=== PATIENT | female | born 1935 | race Caucasian/White ===

== ENCOUNTER 2020-05-25 22:40 | Inpatient (IN) | payer MEDICARE ==
[~2020-05-25] VITALS: Ht 157.5 cm; Wt 47.6 kg
[~2020-05-25 22:40] MED LIST: ACIDOPHILUS LAC1 CAP PO; ALEVE220 MG PO; ANTIVERT12.5 MG PO; BENICAR20 MG PO; CYCLOBENZAPRINE10 MG PO; HYDROCHLOROTH12.5 M1 PO; HYDROCODON-ACE1 EAC7 PO; MIRALAX17 GM PO; OMEPRAZOLE40 MG PO; SYNTHROID100 MCG PO; VALIUM5 MG PO
[2020-05-26] MEDS ORDERED: NORVASC5 MG PO (01:17)
[2020-05-26] MEDS ORDERED: K-TAB10 MEQ PO (01:18)
[2020-05-26] MEDS ORDERED: FERROUS SULFAT325 MG PO (01:19)
[2020-05-26] MEDS ORDERED: COREG6.25 MG PO (01:19)
[2020-05-26] MEDS ORDERED: PROBIOTIC BLEN1 EACH PO (01:20)
[2020-05-26] MEDS ORDERED: LASIX40 MG PO (01:21)
[2020-05-26] MEDS ORDERED: SYNTHROID75 MCG PO (01:22)
[2020-05-26] MEDS ORDERED: NAMENDA10 MG PO (01:23)
[2020-05-26] MEDS ORDERED: DONEPEZIL HCL10 MG PO (01:24)
[2020-05-26] MEDS ORDERED: PAROXETINE HCL10 MG PO (01:25)
[2020-05-26] MEDS ORDERED: OMEPRAZOLE40 MG PO (01:26)
--- NOTE | 2020-05-26 01:30 | NUR ---
DR HARTMAN NOTIFIED OF ARRIVAL ORDERS RECIEVED, IV FLUIDS STARTED ORDERED
[2020-05-26 02:43] VITALS: BP 161/66; BMI 19.2
--- NOTE | 2020-05-26 03:10 | NUR ---
ADMITTED TO ROOM DIRECT ADMIT FROM [facility] VIA AMBULANCE, ALERT WITH PEROIDS OF CONFUSION, HAS NG TIBE TO RIGHT NARE CONECTED TO LOW INTERMITENT WALL SUCTION RETURN OF DARK GREEN FLUID, REQUESTING ICE CHIPS GIVEN 1 AT A TIME, SEE ASSESSMENT, INSTRUCTED ON USE OF CALL LIGHT, HAS SL TO RIGHT AC, ABD SOFT DENIES PAIN AT THIS TIME
[2020-05-26 04:00] VITALS: BP 145/76
[2020-05-26 05:38] LABS: BASOPHILS 0.1 % (0-2); EOSINOPHILS 8.3 % (0-7); HEMATOCRIT 34.2 % (36.0-48.0); HEMOGLOBIN 10.7 g/dL (12-16); IMMATURE GRANULOCYTES 1.9 % (0-5); LYMPHOCYTES 6.7 % (15-50); MCH 28.6 pg (26.0-34.0); MCHC 31.3 g/dL (31.0-37.0); MCV 91.4 fL (80.0-100.0); MEAN PLATELET VOLUME 10.4 fL (7.4-10.4); MONOCYTES 9.5 % (2-11); NEUTROPHILS 73.5 % (40-80); PLATELET COUNT 216 10x3/uL (130-400); RBC 3.74 10x6/uL (4.00-5.40); RDW 14.1 % (11.5-14.5); WBC 8.8 10x3/uL (4.8-10.8)
[2020-05-26 06:08] LABS: ALBUMIN 2.7 g/dL (3.4-5.0); ANION GAP 16.3 mmol/L (8-16); BILIRUBIN - TOTAL 0.44 mg/dL (0.2-1.3); CALCIUM 9.1 mg/dL (8.5-10.1); CARBON DIOXIDE 21.8 mmol/L (21.0-32.0); CREATININE - SERUM 0.8 mg/dL (0.6-1.3); POTASSIUM - SERUM 3.1 mmol/L (3.5-5.1); PROTEIN - SERUM 5.9 g/dL (6.4-8.2)
--- NOTE | 2020-05-26 08:00 | NUR ---
SPOKE WITH DR HARTMAN ABOUT REPLACING POTASSIUM. 40 MEQ IV IS THE ORDER I RECEIVED.
[2020-05-26 08:49] VITALS: BP 163/69
--- NOTE | 2020-05-26 12:01 | NUR ---
NG TUBE TO THE RIGHT NARE. CUSHION GIVEN TO DAUGHTER DAYNE TO EASE DISCOMFORT. PT ASSISTED ON AND OFF BEDPAN. CL IN REACH. NO FURTHER NEEDS AT THIS TIME. WCTM
[2020-05-26 12:47] VITALS: BP 161/73
[2020-05-26 14:12] VITALS: Ht 157.5 cm; Wt 47.6 kg
[2020-05-26 16:00] VITALS: BP 180/80
--- NOTE | 2020-05-26 16:35 | NUR ---
PATIENT POSITIONED TO RIGHT SIDE. DAUGHTER DAYNE IN ROOM. CL IN REACH. NO FURTHER NEEDS AT THIS TIME. WCTM
[2020-05-26 20:00] VITALS: BP 181/81
--- NOTE | 2020-05-26 21:00 | NUR ---
PATIENT RESTING IN BED WITH FAMILY AT BEDSIDE. NO S/S OF ACUTE DISTRESS. NO C/O AT THIS TIME. PATIENT IS CONFUSED TO SITUATION. PATIENT HAS RIGHT AC IV, NORMAL SALINE @ 100 ML/HR. IV IS PATENT WITHOUT REDNESS, SWELLING, OR TENDERNESS. PATIENT HAS NG-TUBE TO RIGHT NARE ON LOW-INTERMITTENT SUCTION. PATIENT HAS REDNESS ON COCCYX. CALL LIGHT WITHIN REACH. BED ALARM ON. WILL CONTINUE TO MONITOR.
[2020-05-27] VITALS: BP 167/77
--- NOTE | 2020-05-27 03:43 | NUR ---
I have reviewed this patient and I concur with the Shift Assessment completed by the Licensed Practical Nurse today this shift.
[2020-05-27 04:00] VITALS: BP 152/74
[2020-05-27 09:18] VITALS: BP 134/75
[2020-05-27 09:49] LABS: BASOPHILS 0.2 % (0-2); EOSINOPHILS 1.4 % (0-7); HEMATOCRIT 32.4 % (36.0-48.0); HEMOGLOBIN 10.2 g/dL (12-16); IMMATURE GRANULOCYTES 1.1 % (0-5); LYMPHOCYTES 7.9 % (15-50); MCH 29.1 pg (26.0-34.0); MCHC 31.5 g/dL (31.0-37.0); MCV 92.6 fL (80.0-100.0); MEAN PLATELET VOLUME 9.8 fL (7.4-10.4); MONOCYTES 10.2 % (2-11); NEUTROPHILS 79.2 % (40-80); PLATELET COUNT 201 10x3/uL (130-400); RDW 14.6 % (11.5-14.5); WBC 9.6 10x3/uL (4.8-10.8)
[2020-05-27 09:51] LABS: CALC OSMOLALITY 295 mosm/kg (275-300); CALCIUM 8.7 mg/dL (8.5-10.1); CARBON DIOXIDE 20.4 mmol/L (21.0-32.0); CHLORIDE - SERUM 115 mmol/L (98-107); CREATININE - SERUM 0.7 mg/dL (0.6-1.3); GLUCOSE 74 mg/dL (74-106); POTASSIUM - SERUM 3.2 mmol/L (3.5-5.1); SODIUM 150 mmol/L (136-145); eGFR NON AFRICAN AMERICAN 84 mL/min (90-120)
[2020-05-27 09:54] LABS: UREA NITROGEN 9 mg/dL (7-18)
[2020-05-27 13:21] VITALS: BP 168/81
--- NOTE | 2020-05-27 17:21 | NUR ---
PATIENT SR ACCOUNT EXECUTIVE LIGHT. USED BED PARK PER REQUEST. DENIES NEEDS AFTER FINISHED. PATIENT WITHOUT DISTRESS. FAMILY IN ROOM. BED LOW POSITION, CALL LIGHT IN REACH. WILL CONTINUE TO MONITOR.
[2020-05-27 20:00] VITALS: BP 163/90
--- NOTE | 2020-05-27 21:00 | NUR ---
LYING IN BED. HOB ELEVATED. GRANDDAUGHTER AT BEDSIDE. ALERT AND ORIENTED TO SELF AND PLACE. CONFUSED AT TIMES. NGT NOTED TO RT NARE WITH DARK GREEN DRAINAGE IN CANISTER. EATING ICE CHIPS. RESP EVEN AND NONLABORED. BBS EXP WHEEZES. ABD IS DISTENDED AND FIRM BUT PT IS PASSING GAS. COCCYX IS RED AND BUTT PASTE APPLIED. BRUISES NOTED TO BUE. D5 1/2 NS WITH 20 MEQ KCL INFUSING @ 100 MLHR IN RT AC. DENIES PAIN. SR ELEVATED X2. CL IN REACH. BED ALARM ON FOR PT SAFETY
[2020-05-28] VITALS (7 sets, daily range): BP systolic 140–180; BP diastolic 77–86
--- NOTE | 2020-05-28 00:30 | NUR ---
C/O NAUSEA. MEDICATED WITH ZOFRAN. CL IN REACH.
--- NOTE | 2020-05-28 04:49 | NUR ---
STILL C/O NAUSEA. NGT HAS PUT OUT 150 ML OF DARK GREEN FLUID. ATTEMPTED TO CHECK PLACEMENT PER AIR BOLUS BUT BOWEL SOUNDS WERE SO LOUD THAT AIR BOLUS COULDNT BE AUSCULTATED. ORDERED STAT CXR TO CHECK PLACEMENT. MAT PACKER AT NURSES STATION AND SAID THAT THE KUB THAT WAS JUST PERFORMED COULD CHECK FOR PLACEMENT. WILL CANCEL STAT CXR.
--- NOTE | 2020-05-28 05:49 | NUR ---
RECEIVED PRELIM KUB WHICH SHOWS NGT WITHIN HIATAL HERNIA. NGT ADVANCED WITH DARK GREEN FLUID NOTED. PLACEMENT CHECKED VIA AIR BOLUS AND AUSCULTATION PER STAFF.
[2020-05-28 06:28] LABS: BASOPHILS 0.1 % (0-2); EOSINOPHILS 1.7 % (0-7); HEMATOCRIT 32.7 % (36.0-48.0); HEMOGLOBIN 10.4 g/dL (12-16); IMMATURE GRANULOCYTES 0.9 % (0-5); LYMPHOCYTES 8.7 % (15-50); MCH 28.7 pg (26.0-34.0); MCHC 31.8 g/dL (31.0-37.0); MEAN PLATELET VOLUME 10.1 fL (7.4-10.4); MONOCYTES 11.7 % (2-11); NEUTROPHILS 76.9 % (40-80); PLATELET COUNT 198 10x3/uL (130-400); RBC 3.63 10x6/uL (4.00-5.40); RDW 14.2 % (11.5-14.5); WBC 9.3 10x3/uL (4.8-10.8)
[2020-05-28 06:29] LABS: MCV 90.1 fL (80.0-100.0)
[2020-05-28 06:37] LABS: CALCIUM 8.1 mg/dL (8.5-10.1); CARBON DIOXIDE 25.5 mmol/L (21.0-32.0); CHLORIDE - SERUM 110 mmol/L (98-107); SODIUM 143 mmol/L (136-145)
[2020-05-28 06:38] LABS: CALC OSMOLALITY 285 mosm/kg (275-300); CREATININE - SERUM 0.5 mg/dL (0.6-1.3); GLUCOSE 163 mg/dL (74-106); UREA NITROGEN 5 mg/dL (7-18); eGFR NON AFRICAN AMERICAN > 90 mL/min (90-120)
[2020-05-28 06:39] LABS: POTASSIUM - SERUM 2.8 mmol/L (3.5-5.1)
--- NOTE | 2020-05-28 06:45 | NUR ---
CRITICAL POTASSIUM OF 2.8. ORDERED ELECTROLYTE PROTOCOL AND STARTED KCL RIDERS
--- NOTE | 2020-05-28 08:48 | NUR ---
SHE IS CONFUSED, HER NORMAL WITH DEMENTIA. THE DAUGHTER IS AT THE BEDSIDE. SHE IS TELLING ME WHEN SHE NEEDS TO VOID, USING THE BEDPAN. 100 CC OF GREEN THIN LIQUID OUT OF THE NG TUBE. THE CALL LIGHT IS WITHIN REACH, THE BED ALARM IS ON.
--- NOTE | 2020-05-28 17:39 | NUR ---
20 G IV STARTED TO THE RFA, REMOVED IV FROM THE RAC. SHE HAS HAD A SMALL BM FROM THE CONTRAST, SHE IS VOMITING.
--- NOTE | 2020-05-28 19:00 | NUR ---
BEDSIDE REPORT RECEIVED AND CARE OF PT ASSUMED. PT LYING IN HIGH ASTUDILLO'S POSITION...VOMITING WITH DAUGHTER AT BEDSIDE. NG TUBE TO RIGHT NARE CLAMPED AT THIS TIME DUE TO BOWEL SERIES BEING PERFORMED. IV TO RIGHT FA PATENT WITH D51/2 NS W/ 20 KCL INFUSING AT 100 ML/HR. WILL MONITOR FOR NEEDS.
--- NOTE | 2020-05-28 20:02 | NUR ---
HS MEDICATIONS GIVEN..PT STILL WITH N/V. RADIOLOGY JUST TOOK XRAY.
--- NOTE | 2020-05-28 20:05 | NUR ---
CALLED DR HARTMAN PER RADOLOGY TO GIVE UPDATE ON BOWEL SERIES...AFTER 3 HRS AND 20 MINS STILL NOTHING IN COLON. ORDER RECEIVED TO RE-START SUCTION TO NG TUBE AND PERFORM KUB IN AM.
--- NOTE | 2020-05-28 20:10 | NUR ---
RE-CONNECTED SUCTION TO NG TUBE IN RIGHT NARE WITH IMMEDIATE RETURN OF 900 ML DARK GREEN, THICK LIQUID. PT FEELING BETTER AND ABDOMEN LESS DISTENDED.
--- NOTE | 2020-05-28 20:20 | NUR ---
CHANGED ALL BEDDING AND GOWN DUE TO INCONTINENCE. POSITIONED IN BED FOR COMFORT. DAUGHTER IS AT BEDSIDE.
--- NOTE | 2020-05-28 21:55 | NUR ---
PT RESTING IN HIGH ASTUDILLO'S POSITION WITH EYES CLOSED AND EASY RESPIRATIONS.
--- NOTE | 2020-05-28 22:29 | NUR ---
FLUSHED NG TUBE TO THIN DRAINAGE.
--- NOTE | 2020-05-28 23:57 | NUR ---
PT C/O SOB...SPO2 95% / PULSE 116. TEMP ELEVATED AT 100.2 DEGREES...BP 177/98. ENCOURAGED COUGHING AND DEEP BREATHING.
[2020-05-29] VITALS: BP 177/98
--- NOTE | 2020-05-29 00:25 | NUR ---
CALLED DR HARTMAN AND RECEIVED ORDER FOR LASIX 20 MG IVP FOR WETNESS IN LUNGS AND SOB. NO NEW ORDER FOR TYLENOL FOR TEMP OF 100.2 DEGREES. WILL CONTINUE TO MONITOR CLOSELY.
--- NOTE | 2020-05-29 02:01 | NUR ---
ALL LINEN AND BEDDING CHANGED DUE TO LARGE INCONTINENCE OF URINE. POSITIONED FOR COMFORT.
--- NOTE | 2020-05-29 02:58 | NUR ---
PT HAD X1 SMALL INCONTINENT STOOL.
[2020-05-29 04:00] VITALS: BP 138/84
--- NOTE | 2020-05-29 04:41 | NUR ---
PT RESTING IN MID ASTUDILLO'S POSITION WITH UNLABORED BREATHING. URINE OUTPUT 1250ML SINCE GIVING LASIX IV.
[2020-05-29 05:22] LABS: BASOPHILS 0.1 % (0-2); EOSINOPHILS 0 % (0-7); HEMATOCRIT 35.9 % (36.0-48.0); HEMOGLOBIN 11.4 g/dL (12-16); IMMATURE GRANULOCYTES 0.3 % (0-5); LYMPHOCYTES 3.2 % (15-50); MCH 28.5 pg (26.0-34.0); MCHC 31.8 g/dL (31.0-37.0); MCV 89.8 fL (80.0-100.0); MEAN PLATELET VOLUME 10.3 fL (7.4-10.4); MONOCYTES 5.1 % (2-11); NEUTROPHILS 91.3 % (40-80); PLATELET COUNT 217 10x3/uL (130-400); RDW 14.3 % (11.5-14.5)
[2020-05-29 05:31] LABS: WBC 15.4 10x3/uL (4.8-10.8)
[2020-05-29 05:33] LABS: CALC OSMOLALITY 288 mosm/kg (275-300); CALCIUM 8.1 mg/dL (8.5-10.1); CARBON DIOXIDE 26.4 mmol/L (21.0-32.0); CHLORIDE - SERUM 109 mmol/L (98-107); CREATININE - SERUM 0.7 mg/dL (0.6-1.3); GLUCOSE 204 mg/dL (74-106); POTASSIUM - SERUM 3.3 mmol/L (3.5-5.1); SODIUM 143 mmol/L (136-145); UREA NITROGEN 6 mg/dL (7-18); eGFR NON AFRICAN AMERICAN 84 mL/min (90-120)
[2020-05-29 08:00] VITALS: BP 105/61
--- NOTE | 2020-05-29 08:08 | NUR ---
SHE IS CONFUSED, USING THE BEDPAN ALOT. THE DAUGHTER IS AT THE BEDSIDE. THE NG TUBE IS PUTTING OUT GREEN THIN LIQUIDS. THE BED ALARM IS ON AND THE CALL LIGHT IS WITHIN REACH.
--- NOTE | 2020-05-29 09:53 | NUR ---
UP TO THE BEDSIDE COMMODE, HAD A BM, THE NG TUBE COME OUT. DR. HARTMAN NOTIFIED, CAN LEAVE THE NG TUBE OUT.
[2020-05-29 11:00] VITALS: BP 115/67
--- NOTE | 2020-05-29 13:36 | NUR ---
Nutrition follow-up: Pt remains NPO; NGT out and will not be replaced at this time Labs reviewed Pt with confusion; normal per daughter +BM, small Wt: 104# Will need nutrition support started within 24 hours if pt remains NPO RDN following.
[2020-05-29 16:40] VITALS: BP 101/58
[2020-05-29 20:00] VITALS: BP 108/60
--- NOTE | 2020-05-29 20:36 | NUR ---
ASSISTED PT TO BSC, NO S/SX OF DISTRESS, CL IN REACH, ADMINISTER PM MEDICATION. NO OTHER NEEDS AT THIS TIME, CONTINUE WITH PLAN OF CARE
[2020-05-30] VITALS: BP 121/86
--- NOTE | 2020-05-30 00:42 | NUR ---
I have reviewed this patient and I concur with the Shift Assessment completed by the Licensed Practical Nurse today this shift.
[2020-05-30 04:00] VITALS: BP 133/64
[2020-05-30 04:19] LABS: BASOPHILS 0.1 % (0-2); EOSINOPHILS 1.2 % (0-7); HEMATOCRIT 33.8 % (36.0-48.0); HEMOGLOBIN 10.5 g/dL (12-16); IMMATURE GRANULOCYTES 0.6 % (0-5); LYMPHOCYTES 5.2 % (15-50); MCH 28.5 pg (26.0-34.0); MCHC 31.1 g/dL (31.0-37.0); MEAN PLATELET VOLUME 10.4 fL (7.4-10.4); MONOCYTES 5.9 % (2-11); PLATELET COUNT 193 10x3/uL (130-400); RBC 3.68 10x6/uL (4.00-5.40); RDW 14.6 % (11.5-14.5); WBC 15.2 10x3/uL (4.8-10.8)
[2020-05-30 04:32] LABS: ANION GAP 7.8 mmol/L (8-16); CALCIUM 8.3 mg/dL (8.5-10.1); CARBON DIOXIDE 30.9 mmol/L (21.0-32.0); CREATININE - SERUM 0.8 mg/dL (0.6-1.3); MCV 91.8 fL (80.0-100.0); POTASSIUM - SERUM 3.7 mmol/L (3.5-5.1)
--- NOTE | 2020-05-30 07:30 | NUR ---
PT IS RESTING IN BED WITH EYES CLOSED. RESPIRATIONS ARE EVEN AND UNLABORED. PT IS EASILY AROUSED WITH VERBAL STIMULATION. PT IS AAOX 4 UPON AROUSAL. PT DENIES PRESENCE OF PAIN/N/V AT THIS TIME. FAMILY MEMBER AT BEDSIDE. PIV TO RIGHT FA INFUSING PER ORDER WITHOUT DIFFICULTY. FALL PRECAUTIONS IN PLACE. PT ENCOURAGED TO REPOSITION AND TCDB. PT AND PT FAMILY VERBALIZE UNDERSTANDING. BED IS IN THE LOWEST POSITION. CALL LIGHT AND BEDSIDE TABLE ARE WITHIN REACH. SIDE RAILS X 2. PT AND PT FAMILY DENY FURTHER NEEDS. WILL CONT TO MONITOR.
[2020-05-30 09:15] VITALS: BP 130/77
[2020-05-30 13:03] VITALS: BP 135/79
[2020-05-30 16:55] VITALS: BP 131/77
[2020-05-30 20:00] VITALS: BP 131/57
--- NOTE | 2020-05-30 23:38 | NUR ---
PT ON CL NEEDS ASSISTANCE TO BSC, ASSISTED PT ON BSCM CHANGED GOWN, SOCK AND SCDS WELL NEW PAD ON PT BED. NO OTHER NEEDS AT THIS TIME. CONTINUE WITH PLAN OF CARE
--- NOTE | 2020-05-30 23:55 | NUR ---
DAUGHTER CAME TO NURSES STATION STATING PT IS NOT FEELING WELL, PT IS HAVING HOT AND COLD EPISODES AND STATES SHE FEELS LIKE SHE IS "FLOATING" AND THAT EVERYTHING THAT TOUCHES HER IS MAKING HER HOT, PT VS READ T- 98.4 BP-127/81 P-95, RSP 20 O2 96. ADMINISTERED PRN NAUSEA MEDICATION, PT IS BELCHING A LOT, WILL CONTINUE WITH PLAN OF CARE AND MONITOR PT
[2020-05-31] VITALS (7 sets, daily range): BP systolic 126–140; BP diastolic 65–86
--- NOTE | 2020-05-31 04:00 | NUR ---
I have reviewed this patient and I concur with the Shift Assessment completed by the Licensed Practical Nurse today this shift.
--- NOTE | 2020-05-31 10:20 | MORECARE ---
CASE MANAGEMENT DISCHARGE SUMMARY PATIENT: LANA DELATORRE UNIT: [id number] ADM DATE: 05/26/20 AGE: 84 : 34 SEX: F ROOM/BED: D.2214 AUTHOR: TOYIN GARCES PHYSICIAN: REFERRING PHYSICIAN: SAW HARTMAN MD DATE OF SERVICE: 05/31/20 Discharge Plan Patient Name: LANA DELATORRE [facility] [facility] 1935 Planned Disposition: Swing Bed (Medicare Approved) Anticipated Discharge Date: Discharge Date: Expected LOS: Initial Reviewer: [email or web address] Initial Review Date: 05/26/2020 Generated: 05/31/20 11:19 am Comments DCP- Discharge Planning Updated by [email or web address]: Radha Tran on 05/31/20 9:[address] LATE ENTRY 05/30/20 PATIENT'S FAMILY CALLED ABOUT GETTING HER TO THE SWING BED AT [place] WHICH I CLOSER TO HOME. THE DAUGHTER SPOKE WITH ROXANNA WATKINS 05/31/20 REFERRAL SENT TO [facility] TO THEIR SWING BED UNIT I SPOKE WITH [facility] AND FAXED CLINICALS TO [phone] External Providers External Provider: OTHER-OTHER Next Contact Date: Service Request Date: Service Type: Resolution: Reviewer: Comments: Patient Name: LANA DELATORRE Page [phone] at 1020 All edits/amendments must be made on the electronic document DICTATION DATE: 05/31/20 1019 ART PROFESSOR: MONSERRAT 05/31/20 1019 RPT#: [id number] DC DATE: STATUS: ADM IN [facility] [address] [place] [address] END OF REPORT
--- NOTE | 2020-05-31 10:39 | NUR ---
RESTING IN BED, NO DISTRESS NOTED, CONFUSED, FAMILY IN ROOM, BLOWEL SOUNDS +, IV INFUSING, 2 ASSIST TO BSC, SCD IN PLACE
[2020-05-31 10:42] LABS: ALBUMIN 2.4 g/dL (3.4-5.0); ALKALINE PHOSPHATASE 85 U/L (30-120); ALT (SGPT) 13 U/L (10-68); BASOPHILS 0.2 % (0-2); BILIRUBIN - TOTAL 0.53 mg/dL (0.2-1.3); CALC OSMOLALITY 278 mosm/kg (275-300); CALCIUM 8.2 mg/dL (8.5-10.1); CHLORIDE - SERUM 104 mmol/L (98-107); CREATININE - SERUM 0.7 mg/dL (0.6-1.3); EOSINOPHILS 1.2 % (0-7); GLUCOSE 133 mg/dL (74-106); HEMATOCRIT 35.8 % (36.0-48.0); HEMOGLOBIN 11.5 g/dL (12-16); IMMATURE GRANULOCYTES 0.3 % (0-5); LYMPHOCYTES 6.5 % (15-50); MAGNESIUM - SERUM 1.4 mg/dL (1.8-2.4); MCH 29.2 pg (26.0-34.0); MCHC 32.1 g/dL (31.0-37.0); MCV 90.9 fL (80.0-100.0); MEAN PLATELET VOLUME 11.1 fL (7.4-10.4); MONOCYTES 7.4 % (2-11); NEUTROPHILS 84.4 % (40-80); PHOSPHOROUS 2.5 mg/dL (2.5-4.9); PLATELET COUNT 229 10x3/uL (130-400); PROTEIN - SERUM 5.6 g/dL (6.4-8.2); RBC 3.94 10x6/uL (4.00-5.40); RDW 14.4 % (11.5-14.5); SODIUM 140 mmol/L (136-145); UREA NITROGEN 7 mg/dL (7-18); WBC 12.9 10x3/uL (4.8-10.8); eGFR NON AFRICAN AMERICAN 84 mL/min (90-120)
[2020-05-31 10:44] LABS: POTASSIUM - SERUM 3.1 mmol/L (3.5-5.1)
--- NOTE | 2020-05-31 10:48 | MORECARE ---
CASE MANAGEMENT DISCHARGE SUMMARY PATIENT: LANA DELATORRE UNIT: [id number] ADM DATE: 05/26/20 AGE: 84 : 34 SEX: F ROOM/BED: D.2214 AUTHOR: TOYIN GARCES PHYSICIAN: REFERRING PHYSICIAN: SAW HARTMAN MD DATE OF SERVICE: 05/31/20 Discharge Plan Patient Name: LANA DELATORRE Facility[facility]:[place] : 1935 Planned Disposition: Swing Bed (Medicare Approved) Anticipated Discharge Date: Discharge Date: Expected LOS: Initial Reviewer: [email or web address] Initial Review Date: 05/26/2020 Generated: 05/31/20 11:48 am Comments DCP- Discharge Planning Updated by [email or web address]: Radha Tran on 05/31/20 9:[address] LATE ENTRY 05/30/20 PATIENT'S FAMILY CALLED ABOUT GETTING HER TO THE SWING BED AT [place] WHICH I CLOSER TO HOME. THE DAUGHTER SPOKE WITH ROXANNA WATKINS 05/31/20 REFERRAL SENT TO [facility] TO THEIR SWING BED UNIT I SPOKE WITH [facility] AND FAXED CLINICALS TO [phone] Coverage Notice Reviewer: [id number] Adrianna Tran Notice Issued Date-Time: 05/31/2020 10:40 Notice Type: IM Discharge Notice Notice Delivered To: Family Member Relationship to Patient: Daughter Funeral Workers Name: DAYNE Delivery Method: HAND - Hand Delivered Edna Days: Prior Verbal Notification: Recipient Understood Notice: Yes Recipient Signature: Yes Med Rec Note Co-signed by Attending: Coverage Notice Comment: JOSÉ WITH DAUGHTER Reviewer: [id number] Adrianna Tran Notice Issued Date-Time: 05/31/2020 10:40 Notice Type: Patient Choice Letter Notice Delivered To: Family Member Relationship to Patient: Daughter Funeral Workers Name: DAYNE Delivery Method: HAND - Hand Delivered Edna Days: Prior Verbal Notification: Recipient Understood Notice: Yes Recipient Signature: Yes Med Rec Note Co-signed by Attending: Coverage Notice Comment: JOSÉ WITH JARVIS Last DP export: 05/31/20 9:20 a Patient Name: LANA DELATORRE Page [phone] at 1048 All edits/amendments must be made on the electronic document DICTATION DATE: 05/31/208 RETAIL ASSET PROTECTION SPECIALIST: MONSERRAT 05/31/20 1048 RPT#: [id number] DC DATE: STATUS: ADM IN [facility] [address] [place] [address] END OF REPORT
--- NOTE | 2020-05-31 10:56 | MORECARE ---
CASE MANAGEMENT DISCHARGE SUMMARY PATIENT: LANA DELATORRE UNIT: [id number] ADM DATE: 05/26/20 AGE: 84 : 34 SEX: F ROOM/BED: D.5634 AUTHOR: DEZDOC PHYSICIAN: REFERRING PHYSICIAN: SAW HARTMAN MD DATE OF SERVICE: 05/31/20 Discharge Plan Patient Name: LANA DELATORRE Facility: [facility]:[employer] : 1935 Planned Disposition: Swing Bed (Medicare Approved) Anticipated Discharge Date: Discharge Date: Expected LOS: Initial Reviewer: [email or web address] Initial Review Date: 05/26/2020 Generated: 05/31/20 11:55 am Comments DCP- Discharge Planning Updated by [email or web address]: Radha Tran on 05/31/20 9:[address] Patient Name: LANA DELATORRE Admission Status: Elective Accout number: [id number] Admission Date: 05-26-2020 : 1935 Admission Diagnosis:UNSP INTESTNL OBST, UNSP TO PARTIAL VERSUS COMPLETE Attending: SAW HARTMAN Current LOS: 5 Anticipated DC Date: Planned Disposition: Swing Bed (Medicare Approved) Primary Insurance: MEDICARE A & B Discharge Planning Comments: CM met with patient's daughter Jennie to complete initial dc planning assessment. CM educated her on the CM role and verbal consent given by patient to complete assessment. Patient lives at home with her daughter and family where she is mostly independent with her care. At discharge patient plans to return home and feels this is a safe discharge. CM discussed availability of home health, rehab services, and medical equipment. Jennie would like her to go to [facility] where to a swing bed. At home the patient has a ramp, walker, shower chair, rails, bsc, lowered bed. IMM served and explained and JOSÉ signed by Jennie and placed in chart. Patient denied known discharge needs at this time. CM will continue to follow and will assist as needed with dc plans/needs. Patient Services Coordinator: Radha Tran DCP- Discharge Planning Updated by [email or web address]: Radha Tran on 05/31/20 9:[address] LATE ENTRY 05/30/20 PATIENT'S FAMILY CALLED ABOUT GETTING HER TO THE SWING BED AT [place] WHICH I CLOSER TO HOME. THE DAUGHTER SPOKE WITH ROXANNA WATKINS 05/31/20 REFERRAL SENT TO [facility] TO THEIR SWING BED UNIT I SPOKE WITH [facility] AND FAXED CLINICALS TO [phone] DCPIA - Discharge Planning Initial Assessment Updated by [email or web address]: Radha Tran on 05/31/20 10:50 am * Is the patient Alert and Oriented? Yes * How many steps to enter\exit or inside your home? RAMP * PCP DR JOSH PADGETT-PA * Pharmacy [facility] * Preadmission Environment Home with Family * ADLs Independent * Equipment Bedside Commode Elevated [place] Seat Grab Bars Rolling Walker Shower Chair Walker * List name and contact numbers for known caregivers / representatives who currently or will assist patient after discharge: JENNIE MAHAJAN [phone] * Verbal permission to speak to the caregivers and representatives has been obtained from the patient. N/A * Community resources currently utilized None * Additional services required to return to the preadmission environment? Yes * Can the patient safely return to the preadmission environment? No * Has this patient been hospitalized within the prior 30 days at any hospital? No Coverage Notice Reviewer: [email or web address] Adrianna Tran Notice Issued Date-Time: 05/31/2020 10:40 Notice Type: IM Discharge Notice Notice Delivered To: Family Member Relationship to Patient: Daughter Vehicle Leasing And Rental Manager Name: JENNIE Delivery Method: HAND - Hand Delivered Edna Days: Prior Verbal Notification: Recipient Understood Notice: Yes Recipient Signature: Yes Med Rec Note Co-signed by Attending: Coverage Notice Comment: JOSÉ WITH DAUGHTER Reviewer: [email or web address] Adrianna Tran Notice Issued Date-Time: 05/31/2020 10:40 Notice Type: Patient Choice Letter Notice Delivered To: Family Member Relationship to Patient: Daughter Vehicle Leasing And Rental Manager Name: JENNIE Delivery Method: HAND - Hand Delivered Edna Days: Prior Verbal Notification: Recipient Understood Notice: Yes Recipient Signature: Yes Med Rec Note Co-signed by Attending: Coverage Notice Comment: JOSÉ WITH JARVIS Rush DP export: 05/31/20 9:48 a Patient Name: LANA DELATORRE Page [phone] at 1056 All edits/amendments must be made on the electronic document DICTATION DATE: 05/31/20 105 ASSISTANT CASE MANAGER: MONSERRAT 05/31/20 105 RPT#: [id number] DC DATE: STATUS: ADM IN [facility] [address] [place] [address] END OF REPORT
--- NOTE | 2020-05-31 13:37 | MORECARE ---
CASE MANAGEMENT DISCHARGE SUMMARY PATIENT: LANA DELATORRE UNIT: [id number] ADM DATE: 05/26/20 AGE: 84 : 34 SEX: F ROOM/BED: D.2214 AUTHOR: DEZ,DOC PHYSICIAN: REFERRING PHYSICIAN: SAW HARTMAN MD DATE OF SERVICE: 05/31/20 Discharge Plan Patient Name: LANA DELATORRE Facility: [facility]:[place] : 1935 Planned Disposition: Swing Bed (Medicare Approved) Anticipated Discharge Date: Discharge Date: Expected LOS: Initial Reviewer: [email or web address] Initial Review Date: 05/26/2020 Generated: 05/31/20 2:36 pm Comments DCP- Discharge Planning Updated by [email or web address]: Radha Tran on 05/31/20 12:[address] CALLED AND SPOKE WITH [facility] ABOUT STATUS OF ADMISSION. SHE STATED THAT THE DR HAS NOT HAD A CHANCE TO LOOK AT IT. I ALSO UPDATED THE FAMILY ABOUT THE ABOVE DCP- Discharge Planning Updated by [email or web address]: Radha Tran on 05/31/20 9:[address] Patient Name: LANA DELATORRE Admission Status: Elective Accout number: [id number] Admission Date: 05-26-2020 : 1935 Admission Diagnosis:UNSP INTESTNL OBST, UNSP TO PARTIAL VERSUS COMPLETE Attending: SAW HARTMAN Current LOS: 5 Anticipated DC Date: Planned Disposition: Swing Bed (Medicare Approved) Primary Insurance: MEDICARE A & B Discharge Planning Comments: CM met with patient's daughter Jennie to complete initial dc planning assessment. CM educated her on the CM role and verbal consent given by patient to complete assessment. Patient lives at home with her daughter and family where she is mostly independent with her care. At discharge patient plans to return home and feels this is a safe discharge. CM discussed availability of home health, rehab services, and medical equipment. Jennie would like her to go to [facility] where to a swing bed. At home the patient has a ramp, walker, shower chair, rails, bsc, lowered bed. IMM served and explained and JOSÉ signed by Jennie and placed in chart. Patient denied known discharge needs at this time. CM will continue to follow and will assist as needed with dc plans/needs. Swimming Pool Plasterer Helper: Radha Tran DCP- Discharge Planning Updated by [id number]: Radha Tran on 05/31/20 9:[address] LATE ENTRY 05/30/20 PATIENT'S FAMILY CALLED ABOUT GETTING HER TO THE SWING BED AT [place] WHICH I CLOSER TO HOME. THE DAUGHTER SPOKE WITH ROXANNA WATKINS 05/31/20 REFERRAL SENT TO [facility] TO THEIR SWING BED UNIT I SPOKE WITH [facility] AND FAXED CLINICALS TO [phone] DCPIA - Discharge Planning Initial Assessment Updated by [email or web address]: Radha Tran on 05/31/20 10:50 am * Is the patient Alert and Oriented? Yes * How many steps to enter\exit or inside your home? RAMP * PCP DR JOSH TOMAS * Pharmacy [facility] * Preadmission Environment Home with Family * ADLs Independent * Equipment Bedside Commode Elevated [place] Seat Grab Bars Rolling Walker Shower Chair Walker * List name and contact numbers for known caregivers / representatives who currently or will assist patient after discharge: JENNIE MAHAJAN [phone] * Verbal permission to speak to the caregivers and representatives has been obtained from the patient. N/A * Community resources currently utilized None * Additional services required to return to the preadmission environment? Yes * Can the patient safely return to the preadmission environment? No * Has this patient been hospitalized within the prior 30 days at any hospital? No Coverage Notice Reviewer: [id number] Adrianna Tran Notice Issued Date-Time: 05/31/2020 10:40 Notice Type: IM Discharge Notice Notice Delivered To: Family Member Relationship to Patient: Daughter Job Coach Name: JENNIE Delivery Method: HAND - Hand Delivered Edna Days: Prior Verbal Notification: Recipient Understood Notice: Yes Recipient Signature: Yes Med Rec Note Co-signed by Attending: Coverage Notice Comment: JOSÉ WITH DAUGHTER Reviewer: [email or web address] Adrianna Tran Notice Issued Date-Time: 05/31/2020 10:40 Notice Type: Patient Choice Letter Notice Delivered To: Family Member Relationship to Patient: Daughter Job Coach Name: JENNIE Delivery Method: HAND - Hand Delivered Edna Days: Prior Verbal Notification: Recipient Understood Notice: Yes Recipient Signature: Yes Med Rec Note Co-signed by Attending: Coverage Notice Comment: JOSÉ WITH JARVIS Last DP export: 05/31/20 9:56 a Patient Name: LANA DELATORRE Page [phone] at 1337 All edits/amendments must be made on the electronic document DICTATION DATE: 05/31/20 1336 SUPERVISOR ENGINE ASSEMBLY: MONSERRAT 05/31/20 1336 RPT#: [id number] DC DATE: STATUS: ADM IN [facility] [address] [place] [address] END OF REPORT
--- NOTE | 2020-06-01 00:37 | NUR ---
PT LYING IN BED FINALLY RESTING, CHNAGED PT BED AT LEAST 5 TIMES SINCE SHIFT CHANGE. PT GRANDDAUGHTER AT BEDSIDE, NO S/SX OF DISTRESS CONTINUE WITH PLAN OF CARE
[2020-06-01 04:00] VITALS: BP 99/67
--- NOTE | 2020-06-01 04:56 | NUR ---
I have reviewed this patient and I concur with the Shift Assessment completed by the Licensed Practical Nurse today this shift.
[2020-06-01 05:53] LABS: BASOPHILS 0.1 % (0-2); EOSINOPHILS 0.9 % (0-7); HEMATOCRIT 32.8 % (36.0-48.0); HEMOGLOBIN 10.3 g/dL (12-16); IMMATURE GRANULOCYTES 0.3 % (0-5); MCH 28.5 pg (26.0-34.0); MCHC 31.4 g/dL (31.0-37.0); MCV 90.9 fL (80.0-100.0); MEAN PLATELET VOLUME 10.6 fL (7.4-10.4); MONOCYTES 6.4 % (2-11); NEUTROPHILS 86.3 % (40-80); PLATELET COUNT 237 10x3/uL (130-400); RBC 3.61 10x6/uL (4.00-5.40); RDW 14.1 % (11.5-14.5); WBC 12.3 10x3/uL (4.8-10.8)
[2020-06-01 06:28] LABS: CALC OSMOLALITY 273 mosm/kg (275-300); CALCIUM 8.7 mg/dL (8.5-10.1); CHLORIDE - SERUM 105 mmol/L (98-107); CREATININE - SERUM 0.7 mg/dL (0.6-1.3); GLUCOSE 99 mg/dL (74-106); MAGNESIUM - SERUM 1.5 mg/dL (1.8-2.4); SODIUM 138 mmol/L (136-145); UREA NITROGEN 7 mg/dL (7-18); eGFR NON AFRICAN AMERICAN 84 mL/min (90-120)
[2020-06-01 06:29] LABS: POTASSIUM - SERUM 3.7 mmol/L (3.5-5.1)
--- NOTE | 2020-06-01 08:31 | MORECARE ---
CASE MANAGEMENT DISCHARGE SUMMARY PATIENT: LANA DELATORRE UNIT: [id number] ADM DATE: 05/26/20 AGE: 84 : 34 SEX: F ROOM/BED: D.2214 AUTHOR: TOYIN GARCES PHYSICIAN: REFERRING PHYSICIAN: SAW HARTMAN MD DATE OF SERVICE: 06/01/20 Discharge Plan Patient Name: LANA DELATORRE Facility: [facility]:[place] : 1935 Planned Disposition: Swing Bed (Medicare Approved) Anticipated Discharge Date: Discharge Date: Expected LOS: Initial Reviewer: [email or web address] Initial Review Date: 05/26/2020 Generated: 06/01/20 9:30 am Comments DCP- Discharge Planning Updated by [email or web address]: Radha Tran on 06/01/20 7:[address] PATIENT WILL BE DISCHARGING TO [facility] TO A SWING BED VIA EMS TODAY. DAUGHTER AT BEDSIDE AND KNOWS THE ABOVE. NURSE WILL CALL REPORT DCP- Discharge Planning Updated by [email or web address]: Radha Tran on 05/31/20 12:[address] CALLED AND SPOKE WITH HOPE ABOUT STATUS OF ADMISSION. SHE STATED THAT THE DR HAS NOT HAD A CHANCE TO LOOK AT IT. I ALSO UPDATED THE FAMILY ABOUT THE ABOVE DCP- Discharge Planning Updated by [email or web address]: Radha Tran on 05/31/20 9:[address] Patient Name: LANA DELATORRE Admission Status: Elective Accout number: [id number] Admission Date: 05-26-2020 : 1935 Admission Diagnosis:UNSP INTESTNL OBST, UNSP TO PARTIAL VERSUS COMPLETE Attending: SAW HARTMAN Current LOS: 5 Anticipated DC Date: Planned Disposition: Swing Bed (Medicare Approved) Primary Insurance: MEDICARE A & B Discharge Planning Comments: CM met with patient's daughter Jennie to complete initial dc planning assessment. CM educated her on the CM role and verbal consent given by patient to complete assessment. Patient lives at home with her daughter and family where she is mostly independent with her care. At discharge patient plans to return home and feels this is a safe discharge. CM discussed availability of home health, rehab services, and medical equipment. Jennie would like her to go to [facility] where to a swing bed. At home the patient has a ramp, walker, shower chair, rails, bsc, lowered bed. IMM served and explained and JOSÉ signed by Jennie and placed in chart. Patient denied known discharge needs at this time. CM will continue to follow and will assist as needed with dc plans/needs. Grommet Machine Operator: Radha Tran DCP- Discharge Planning Updated by [email or web address]: Radha Tran on 05/31/20 9:[address] LATE ENTRY 05/30/20 PATIENT'S FAMILY CALLED ABOUT GETTING HER TO THE SWING BED AT [place] WHICH I CLOSER TO HOME. THE DAUGHTER SPOKE WITH ROXANNA JUNE 05/31/20 REFERRAL SENT TO [facility] TO THEIR SWING BED UNIT I SPOKE WITH HOPE AND FAXED CLINICALS TO [phone] DCPIA - Discharge Planning Initial Assessment Updated by [email or web address]: Radha Tran on 05/31/20 10:50 am * Is the patient Alert and Oriented? Yes * How many steps to enter\exit or inside your home? RAMP * PCP DR JOSH TOMAS * Pharmacy [facility] * Preadmission Environment Home with Family * ADLs Independent * Equipment Bedside Commode Elevated [place] Seat Grab Bars Rolling Walker Shower Chair Walker * List name and contact numbers for known caregivers / representatives who currently or will assist patient after discharge: JENNIE TOMPKINSJacob [phone] * Verbal permission to speak to the caregivers and representatives has been obtained from the patient. N/A * Community resources currently utilized None * Additional services required to return to the preadmission environment? Yes * Can the patient safely return to the preadmission environment? No * Has this patient been hospitalized within the prior 30 days at any hospital? No Coverage Notice Reviewer: [id number] Adrianna Tran Notice Issued Date-Time: 05/31/2020 10:40 Notice Type: IM Discharge Notice Notice Delivered To: Family Member Relationship to Patient: Daughter Concrete Carpenter Name: JENNIE Delivery Method: HAND - Hand Delivered Edna Days: Prior Verbal Notification: Recipient Understood Notice: Yes Recipient Signature: Yes Med Rec Note Co-signed by Attending: Coverage Notice Comment: JOSÉ WITH DAUGHTER Reviewer: [id number] Adrianna Tran Notice Issued Date-Time: 05/31/2020 10:40 Notice Type: Patient Choice Letter Notice Delivered To: Family Member Relationship to Patient: Daughter Concrete Carpenter Name: JENNIE Delivery Method: HAND - Hand Delivered Edna Days: Prior Verbal Notification: Recipient Understood Notice: Yes Recipient Signature: Yes Med Rec Note Co-signed by Attending: Coverage Notice Comment: JOSÉ WITH JARVIS Rush DP export: 05/31/20 12:37 p Patient Name: LANA DELATORRE Page [phone] at 0831 All edits/amendments must be made on the electronic document DICTATION DATE: 06/01/20829 SEAL MIXER: MONSERRAT 06/01/20829 RPT#: [id number] DC DATE: STATUS: ADM IN [facility] [address] [place] [address] END OF REPORT
--- NOTE | 2020-06-01 08:39 | MORECARE ---
CASE MANAGEMENT DISCHARGE SUMMARY PATIENT: LANA DELATORRE UNIT: [id number] ADM DATE: 05/26/20 AGE: 84 : 34 SEX: F ROOM/BED: D.2214 AUTHOR: DEZ,DOC PHYSICIAN: REFERRING PHYSICIAN: SAW HARTMAN MD DATE OF SERVICE: 06/01/20 Discharge Plan Patient Name: LANA DELATORRE Facility: [facility]:[place] : 1935 Planned Disposition: Swing Bed (Medicare Approved) Anticipated Discharge Date: Discharge Date: Expected LOS: Initial Reviewer: [id number] Initial Review Date: 05/26/2020 Generated: 06/01/20 9:38 am Comments DCP- Discharge Planning Updated by [email or web address]: Radha Tran on 06/01/20 7:[address] PATIENT WILL BE GOING TO ROOM 114 DCP- Discharge Planning Updated by [email or web address]: Radha Tran on 06/01/20 7:[address] PATIENT WILL BE DISCHARGING TO [facility] TO A SWING BED VIA EMS TODAY. DAUGHTER AT BEDSIDE AND KNOWS THE ABOVE. NURSE WILL CALL REPORT DCP- Discharge Planning Updated by [email or web address]: Radha Tran on 05/31/20 12:[address] CALLED AND SPOKE WITH HOPE ABOUT STATUS OF ADMISSION. SHE STATED THAT THE DR HAS NOT HAD A CHANCE TO LOOK AT IT. I ALSO UPDATED THE FAMILY ABOUT THE ABOVE DCP- Discharge Planning Updated by [email or web address]: Radha Tran on 05/31/20 9:[address] Patient Name: LANA DELATORRE Admission Status: Elective Accout number: [id number] Admission Date: 05-26-2020 : 1935 Admission Diagnosis:UNSP INTESTNL OBST, UNSP TO PARTIAL VERSUS COMPLETE Attending: SAW HARTMAN Current LOS: 5 Anticipated DC Date: Planned Disposition: Swing Bed (Medicare Approved) Primary Insurance: MEDICARE A & B Discharge Planning Comments: CM met with patient's daughter Jennie to complete initial dc planning assessment. CM educated her on the CM role and verbal consent given by patient to complete assessment. Patient lives at home with her daughter and family where she is mostly independent with her care. At discharge patient plans to return home and feels this is a safe discharge. CM discussed availability of home health, rehab services, and medical equipment. Jennie would like her to go to [facility] where to a swing bed. At home the patient has a ramp, walker, shower chair, rails, bsc, lowered bed. IMM served and explained and JOSÉ signed by Jennie and placed in chart. Patient denied known discharge needs at this time. CM will continue to follow and will assist as needed with dc plans/needs. Distributor Advertising Material: Radha Tran DCP- Discharge Planning Updated by [email or web address]: Radha Tran on 05/31/20 9:[address] LATE ENTRY 05/30/20 PATIENT'S FAMILY CALLED ABOUT GETTING HER TO THE SWING BED AT [place] WHICH I CLOSER TO HOME. THE DAUGHTER SPOKE WITH ROXANNA WATKINS 05/31/20 REFERRAL SENT TO [facility] TO THEIR SWING BED UNIT I SPOKE WITH HOPE AND FAXED CLINICALS TO [phone] DCPIA - Discharge Planning Initial Assessment Updated by [email or web address]: Radha Tran on 05/31/20 10:50 am * Is the patient Alert and Oriented? Yes * How many steps to enter\exit or inside your home? RAMP * PCP DR JOSH TOMAS * Pharmacy [facility] * Preadmission Environment Home with Family * ADLs Independent * Equipment Bedside Commode Elevated [place] Seat Grab Bars Rolling Walker Shower Chair Walker * List name and contact numbers for known caregivers / representatives who currently or will assist patient after discharge: JENNIE MAHAJAN [phone] * Verbal permission to speak to the caregivers and representatives has been obtained from the patient. N/A * Community resources currently utilized None * Additional services required to return to the preadmission environment? Yes * Can the patient safely return to the preadmission environment? No * Has this patient been hospitalized within the prior 30 days at any hospital? No Coverage Notice Reviewer: [id number] - Radha Tran Notice Issued Date-Time: 05/31/2020 10:40 Notice Type: IM Discharge Notice Notice Delivered To: Family Member Relationship to Patient: Daughter Timber Incisor Operator Name: JENNIE Delivery Method: HAND - Hand Delivered Edna Days: Prior Verbal Notification: Recipient Understood Notice: Yes Recipient Signature: Yes Med Rec Note Co-signed by Attending: Coverage Notice Comment: JOSÉ WITH DAUGHTER Reviewer: [id number] Adrianna Tran Notice Issued Date-Time: 05/31/2020 10:40 Notice Type: Patient Choice Letter Notice Delivered To: Family Member Relationship to Patient: Daughter Timber Incisor Operator Name: JENNIE Delivery Method: HAND - Hand Delivered Edna Days: Prior Verbal Notification: Recipient Understood Notice: Yes Recipient Signature: Yes Med Rec Note Co-signed by Attending: Coverage Notice Comment: JOSÉ WITH JARVIS Last DP export: 06/01/20 7:31 a Patient Name: LANA DELATORRE Page [phone] at 0839 All edits/amendments must be made on the electronic document DICTATION DATE: 06/01/20837 RATE SETTER: MONSERRAT 06/01/20837 RPT#: [id number] DC DATE: STATUS: ADM IN [facility] [address] [place] [address] END OF REPORT
--- NOTE | 2020-06-01 09:20 | NUR ---
PATIENT AND GRANDDAUGHTER RECIEVED DC INSTRUCTIONS. VERBALIZED UNDERSTANDING. NO QUESTIONS AT THIS TIME. PATIENT TO GO TO [facility] VIA AMBULANCE.
--- NOTE | 2020-06-01 10:40 | NUR ---
PATIENT CHANGED AND IV REMOVED AT THIS TIME WITH CATH TIP INTACT. ASSISTED PATIENT ON STRETCHER X 3 ASSIST WITH PERSONAL BELONGINGS. EMS TOOK PATIENT TO AMBULANCE AND BEING DC'D AT THIS TIME. [facility].
--- NOTE | 2020-06-01 10:50 | NUR ---
REPORT CALLED TO TAISHA AT [facility].
[2020-06-01 10:59] VITALS: BP 140/77
--- NOTE | 2020-06-01 12:31 | MORECARE ---
CASE MANAGEMENT DISCHARGE SUMMARY PATIENT: LANA DELATORRE UNIT: [id number] ADM DATE: 05/26/20 AGE: 84 : 34 SEX: F ROOM/BED: D.2214 AUTHOR: DEZ,DOC PHYSICIAN: REFERRING PHYSICIAN: SAW HARTMAN MD DATE OF SERVICE: 06/01/20 Discharge Plan Patient Name: LANA DELTAORRE Facility: [facility]:[place] : 1935 Planned Disposition: Swing Bed (Medicare Approved) Anticipated Discharge Date: Discharge Date: 06/01/2020 Expected LOS: 0 Initial Reviewer: [email or web address] Initial Review Date: 05/26/2020 Generated: 06/01/20 1:30 pm Comments DCP- Discharge Planning Updated by [email or web address]: Radha Tran on 06/01/20 7:[address] PATIENT WILL BE GOING TO ROOM 114 DCP- Discharge Planning Updated by [email or web address]: Radha Tran on 06/01/20 7:[address] PATIENT WILL BE DISCHARGING TO [facility] TO A SWING BED VIA EMS TODAY. DAUGHTER AT BEDSIDE AND KNOWS THE ABOVE. NURSE WILL CALL REPORT DCP- Discharge Planning Updated by [email or web address]: Radha Tran on 05/31/20 12:[address] CALLED AND SPOKE WITH HOPE ABOUT STATUS OF ADMISSION. SHE STATED THAT THE DR HAS NOT HAD A CHANCE TO LOOK AT IT. I ALSO UPDATED THE FAMILY ABOUT THE ABOVE DCP- Discharge Planning Updated by [email or web address]: Radha Tran on 05/31/20 9:[address] Patient Name: LANA DELATORRE Admission Status: Elective Accout number: [id number] Admission Date: 05-26-2020 : 1935 Admission Diagnosis:UNSP INTESTNL OBST, UNSP TO PARTIAL VERSUS COMPLETE Attending: SAW HARTMAN Current LOS: 5 Anticipated DC Date: Planned Disposition: Swing Bed (Medicare Approved) Primary Insurance: MEDICARE A & B Discharge Planning Comments: CM met with patient's daughter Jennie to complete initial dc planning assessment. CM educated her on the CM role and verbal consent given by patient to complete assessment. Patient lives at home with her daughter and family where she is mostly independent with her care. At discharge patient plans to return home and feels this is a safe discharge. CM discussed availability of home health, rehab services, and medical equipment. Jennie would like her to go to [facility] where to a swing bed. At home the patient has a ramp, walker, shower chair, rails, bsc, lowered bed. IMM served and explained and JOSÉ signed by Jennie and placed in chart. Patient denied known discharge needs at this time. CM will continue to follow and will assist as needed with dc plans/needs. Raw Mill Operator: Radha Tran DCP- Discharge Planning Updated by [email or web address]: Radha Tran on 05/31/20 9:[address] LATE ENTRY 05/30/20 PATIENT'S FAMILY CALLED ABOUT GETTING HER TO THE SWING BED AT [place] WHICH I CLOSER TO HOME. THE DAUGHTER SPOKE WITH ROXANNA WATKINS 05/31/20 REFERRAL SENT TO [facility] TO THEIR SWING BED UNIT I SPOKE WITH HOPE AND FAXED CLINICALS TO [phone] DCPIA - Discharge Planning Initial Assessment Updated by [email or web address]: Radha Tran on 05/31/20 10:50 am * Is the patient Alert and Oriented? Yes * How many steps to enter\exit or inside your home? RAMP * PCP DR JOSH TOMAS * Pharmacy [facility] * Preadmission Environment Home with Family * ADLs Independent * Equipment Bedside Commode Elevated [place] Seat Grab Bars Rolling Walker Shower Chair Walker * List name and contact numbers for known caregivers / representatives who currently or will assist patient after discharge: JENNIE MAHAJAN [phone] * Verbal permission to speak to the caregivers and representatives has been obtained from the patient. N/A * Community resources currently utilized None * Additional services required to return to the preadmission environment? Yes * Can the patient safely return to the preadmission environment? No * Has this patient been hospitalized within the prior 30 days at any hospital? No Coverage Notice Reviewer: [id number] - Radha Tran Notice Issued Date-Time: 05/31/2020 10:40 Notice Type: IM Discharge Notice Notice Delivered To: Family Member Relationship to Patient: Daughter Global Position System Technician Name: JENNIE Delivery Method: HAND - Hand Delivered Edna Days: Prior Verbal Notification: Recipient Understood Notice: Yes Recipient Signature: Yes Med Rec Note Co-signed by Attending: Coverage Notice Comment: JOSÉ WITH DAUGHTER Reviewer: [id number] Adrianna Tran Notice Issued Date-Time: 05/31/2020 10:40 Notice Type: Patient Choice Letter Notice Delivered To: Family Member Relationship to Patient: Daughter Global Position System Technician Name: JENNIE Delivery Method: HAND - Hand Delivered Edna Days: Prior Verbal Notification: Recipient Understood Notice: Yes Recipient Signature: Yes Med Rec Note Co-signed by Attending: Coverage Notice Comment: JOSÉ WITH JARVIS Rush DP export: 06/01/20 7:39 a Patient Name: LANA DELATORRE Page [phone] at 1231 All edits/amendments must be made on the electronic document DICTATION DATE: 06/01/20 1231 PRACTICE CONSULTANT: MONSERRAT 06/01/20 1231 RPT#: [id number] DC DATE:06/01/20 STATUS: DIS IN [facility] [address] [place] [address] END OF REPORT
== END 2020-06-01 10:55 | disposition swing bed (61) | DRG 390 ==
LOC: D.MS 22:40
PROVIDERS: ADMIT Surgery; ATTEND Surgery
DX: K56.609 Unspecified intestinal obstruction, unspecified as to partial versus complete obstruction (principal); I11.0 Hypertensive heart disease with heart failure; I50.9 Heart failure, unspecified; E87.6 Hypokalemia; K40.90 Unilateral inguinal hernia, without obstruction or gangrene, not specified as recurrent